=== PATIENT | male | born 1995 | race Caucasian/White ===

== ENCOUNTER 2017-11-25 03:50 | Day surgery (SDC) | payer BC, SELFPAY ==
[2017-11-25] VITALS (8 sets, daily range): BP systolic 113–151; BP diastolic 61–99; PULSE 64–76; RESP 18–19; TEMP 36.4–36.8; O2SAT 95–99; BMI 29.5
[2017-11-25] MEDS: proMETHazine 25 MG/ML Syringe 6.25 MG IV (04:17)
[2017-11-25] MEDS: HYDROmorphone 0.5 MG/0.5 ML SYRINGE IV (04:18)
[2017-11-25 04:20] LABS: Absolute Lymphocyte Count 3.35 X10^3/ul (0.83-4.51); Absolute Neutrophil Count 6.4 X10^3/uL (2.0-7.7); Basophil# 0.06 X10^3/uL; Basophil% 0.6 % (0-1); Eosinophils% 2.8 % (0-5); Hematocrit 41.1 % (40-54); Hemoglobin 14.2 g/dl (13.0-16.5); Lymphocyte # 3.35 X10^3/ul (4.0); Lymphocyte % 31.2 % (19-41); Mean Corp Hgb Conc 34.5 g/gl (32-36); Mean Corpuscular Hgb 27.8 pg (27.0-32.0); Mean Corpuscular Volume 80.6 fL (80-94); Mean Platelet Vol. 8.7 fl (6.2-12.0); Monocyte# 0.52 X10^3/uL; Monocyte% 4.8 % (0-10); Neutrophil % 59.7 % (47-70); Platelet Count 412 K/mm3 (150-450); RBC Distribution Width CV 12.7 % (11.6-14.6); RBC Distribution Width SD 36.2 fl (35.1-43.9); White Blood Count 10.7 K/mm3 (4.4-11.0)
[2017-11-25 04:23] LABS: POSITIVE COUNT NO; POSITIVE DIFFERENTIAL NO; POSITIVE MORPHOLOGY NO
[2017-11-25 04:29] LABS: International Normalized Ratio 1.1; Prothrombin Time (Protime)PT. 13.7 SECONDS (11.7-14.9)
[2017-11-25 04:31] LABS: Anion Gap 9 (5-15); BUN 11 mg/dL (7-18); BUN/Creat Ratio 11.4 RATIO (10-20); Chloride 104 mmol/L (98-107); Creatinine, Serum 0.96 mg/dL (0.70-1.30); EST Glomerular Filtration Rate 105 mL/min (>60); Est Glom Filt Rate - Afr Amer 127 mL/min (>60); Estimated Creatinine Clearance 157.36 ml/min; Glucose 106 mg/dL (74-106); Potassium 3.4 mmol/L (3.5-5.1); Sodium Level 140 mmol/L (136-145)
--- NOTE | 2017-11-25 05:00 | US_ITS ---
STUDY: SCROTUM ULTRASOUND REASON FOR EXAM: Male, 22 years old. Left scrotal pain TECHNIQUE: Ultrasound evaluation of the scrotum was performed with color Doppler and static samuels-scale imaging. COMPARISON: None. FINDINGS: RIGHT TESTICLE INTRATESTICULAR: There is a normal size of the right testicle. The right testicle measures 4.7 x 2.4 x 2.3 cm. There is a homogenous echotexture. There is normal arterial and normal venous vascularity. There is no demonstrated right testicular mass or cyst. EXTRATESTICULAR: The epididymis is normal in size. The epididymis head measures 1.5 x 0.8 x 0.7 cm. There is normal vascularity of the epididymis. There is no demonstrated epididymal cystic structure. There is a small hydrocele. There is no demonstrated varicocele. There is no demonstrated extratesticular mass or cyst. LEFT TESTICLE INTRATESTICULAR: The left testicle is smaller than the right, measuring 3.2 x 3.2 x 2.5 cm. No internal vascularity is detected, compatible with sequelae of torsion. EXTRATESTICULAR: The epididymis is large and heterogeneous, suggesting epididymitis. There is no demonstrated hydrocele. There is no demonstrated varicocele. There is no demonstrated extratesticular mass or cyst. US/Testicular with Arterial Flow IMPRESSION: No testicular vascularity is detected on the left. Findings suggest sequelae of torsion. Prominent heterogeneous left epididymis could suggest a superimposed epididymitis. Small right hydrocele. N.B. : The above information has been verbally conveyed by Tommie Tamez MD to Flor Flores , Referring Physician, on 11/25/2017 06:19:59 (ET). Electronically Signed: Tommie Tamez MD at 6:19 EDT Tel , Service support , N.B. : The above information has been verbally conveyed by Tommie Tamez MD to Flor Flores , Referring Physician, on 11/25/2017 06:19:59 (ET).
--- NOTE | 2017-11-25 05:50 | ED.DCSUM_ITS ---
- ER Visit Summary Date of Service: 11/25/17 Chief Complaint: [] Left testicle pain History of Present Illness: The patient is a 22 M [] complaining of pain in the left testicle consistent with a previous history of testicular torsion. Patient reports 2 previous testicular torsion's. Reports the last one required surgery to tack it down. Reports his surgery was in the [place] area. He denies any recent trauma to the area. Reports last ejaculation was 24 hours ago. Denies fevers. No other complaints at this time. Physical Examination: [] Afebrile, vital signs stable. 22-year-old male in mild distress. Genitourinary exam reveals normal-appearing scrotum without edema or hydrocele. Cremasteric reflex intact bilaterally. There is tenderness palpation to the left testicle. Test Results: [] Scrotal ultrasound reveals lack of blood flow to the left testicle.CBC, BMP within normal limits. INR normal. Emergency Department Course and Treatment: [] I attempted to manually detorsed the testicle which provide the patient temporary relief. However when I move my hands from the affected area the patient's pain slowly recurred consistent with recurrent torsion. After the ultrasound confirms a testicular torsion discussed the case with the on-call urologist will be in to perform surgery to correct the torsion. Treatment Plan: [] Transfer to the operating room urgently for surgical detorsion. Disposition: [] Transfer, operating room. Impression: [] Acute left testicular torsion This note was generated with [employer] dictation software. It may contain incorrect words, spelling, and punctuation that were not noted in review of the chart prior to signing ED Disposition - Plan for ED Patient: Chief Complaint: Male Pain/Injury Referrals: Care Physician,No Primary [Primary Care Provider] -
--- NOTE | 2017-11-25 06:27 | HP.PCM_ITS ---
Problem List (1) Testicular torsion Status: Acute History of Present Illness Date of Admission: 11/25/17 Chief Complaint: LEFT SEVERE TESTICULAR PAIN The patient is a 22 year old male had severe left testicular pain this morning at 3 am history of prior left torsion and bilateral orchioexy about 3 years ago in [facility]/s was done and documented no flow to the left testicle in the er Past Medical History Allergies codeine Adverse Reaction (Verified 11/25/17 03:51) Rash Home Medications: Ambulatory Orders Medication Instructions Recorded NK [NK] 11/25/17 Surgical History: - - prior bilateral orchiopexy 3 years ago Psychiatric History: No pertinent psych hx Lives: With Family Smoking Status: Never smoker Tobacco Use: Non-smoker Alcohol: None Drugs: None Review of Systems Constitutional: Denies: Chills, Fever, Weight Change HEENT: Denies: Head Aches, Sinus Congestion, Sinus Drainage Cardiovascular: Denies: Chest Pain, Palpitations Respiratory: Denies: Cough, Shortness of breath at rest, Sputum production Gastrointestinal: Reports: Abdominal Pain, - - left testicle pain Genitourinary: Denies: Dysuria Musculoskeletal: Denies: Joint Pain, Joint Tenderness Skin: Denies: Rash, Wounds Neurological: Denies: Numbness, Tingling, Focal weakness Psychiatric: Denies: Anxiety, Depression, Homicidal Ideations, Suicidal Ideations Hematologic/ Lymphatic: Denies: Easy Bruising, Easy Bleeding VTE Information - Inpt Only VTE Present on Admission: No VTE Mechan Device Prophylaxis: SCD's VTE Pharm Prophylaxis ordered?: No Reason prophylaxis not ordered:: Treatment Not Indicated Patient Problems: Active and Suspected Problems Testicular torsion (Acute) - Physical Exam General: Alert, Oriented x3, Cooperative HEENT: Atraumatic, PERRLA, EOMI, Normocephalic Neck: Supple, No JVD, Negative Carotid Bruits Lungs: Clear to auscultation, Normal air movement Cardiovascular: Regular rate, No murmurs Abdomen: Bowel Sounds Present, Soft, Non Tender Extremities: No edema, Capillary Refill Less than 3 Seconds Skin: No rashes, No breakdown Musculoskeletal: No Tenderness to Palpation of Joints or Extremities Neurological: Cranial nerves II-XII grossly intact Psych/Mental Status: Normal Affect, Appropriate Comment: left testicle swollen a little bit and severe left testicular pain on exam, Vital Signs Temp Pulse Resp BP Pulse Ox 98.0 F 66 18 151/99 H 98 11/25/17 06:17 11/25/17 06:17 11/25/17 06:17 11/25/17 06:17 11/25/17 06:17 Oxygen Delivery Method Room Air Weight: 115.9 kg Body Mass Index (BMI) 29.5 Laboratory Tests Past 24 Hrs 11/25/17 11/25/17 11/25/17 04:05 04:05 04:05 WBC 10.7 RBC 5.10 Hgb 14.2 Hct 41.1 MCV 80.6 MCH 27.8 MCHC 34.5 RDW 12.7 RDW Differential 36.2 Plt Count 412 MPV 8.7 Immature Gran % (Auto) 0.900 Neut % (Auto) 59.7 Lymph % (Auto) 31.2 [place] % (Auto) 4.8 Eos % (Auto) 2.8 Baso % (Auto) 0.6 Absolute Neuts (auto) 6.4 Absolute Lymphs (auto) 3.35 Total Counted Not Reportable PT 13.7 INR 1.1 Sodium 140 Potassium 3.4 L Chloride 104 Carbon Dioxide 27.0 Anion Gap 9 BUN 11 Creatinine 0.96 Estim Creat Clear Calc 157.36 Est GFR (MDRD) Af Amer 127 Est GFR (MDRD) Non-Af 105 BUN/Creatinine Ratio 11.4 Glucose 106 Calcium 9.0 Assessment/Plan Active and Suspected Problems Testicular torsion (Acute) plan to take to OR today for surgical exploration. possible orchiopexy, plan for b/l orchiopexy , possible orchiectomy.
[2017-11-25] MEDS: Bupivacaine Mpf 0.5% 30 ML VIAL (06:33)
--- NOTE | 2017-11-25 07:42 | PCM.OPRPT ---
Problem List (1) Testicular torsion Status: Acute Report of Operation Date of Procedure: 11/25/17 Pre-Operative Diagnosis: Left testicular torsion Post-Operative Diagnosis: Same Surgery/Procedure Performed:: Scrotal exploration, detorsion of the left testicle, bilateral orchiopexy Description of Surgical Findings:: 22-year-old male was taken back to the operating room emergently for acute onset of left testicular torsion, after induction of anesthesia and intubation, the scrotum and testicle area were prepped and draped in usual sterile fashion, I then made an incision in the midline scrotal raphae and infiltrated the scrotum with Marcaine. Dissected down immediately to the left testicle carrying the incision through the dartos muscle and the tunica albuginea, immediately encountered a testicle is completely blue and the epididymis was also blue and the testicle was twisted 360?, testicles untwisted and immediately blood flow returned to the testicle it was blue and we put the testicle in warm water and started to pink up nicely, I then opened up the right testicular sac and tunica and then performed an orchiopexy on the right side with 3 point fixation using permanent braided suture the fixation was done on the left and right aspect of the testicle and the top of the testicle, also in the right testicle I removed the appendix of the testicle on the epididymis. I went to the left testicle and by this time it was less blue and appeared viable and the epididymis is nice and pink, and I removed the appendix of the epididymis off the left testicle, I then created a dartos pouch and then made a 3 point fixation of the left testicle using permanent braided suture, of note the right testicle was completely free in its sac with no signs of any suture, same thing with the left side the testicle was twisted but no suture was noted within the sac. After completing bilateral orchiopexy I then closed the dartos layer with chromic and then closed the skin with subcuticular Monocryl suture. Fluffs and scrotal support was placed patient anesthetic was reversed and he will see me in about 2 weeks for checkup. Type of Anesthesia:: General Drains: none - Admit VTE Documentation VTE Present on Admission: No VTE Mechan Device Prophylaxis: SCD's VTE Pharm Prophylaxis ordered?: No Reason prophylaxis not ordered:: Treatment Not Indicated
--- NOTE | 2017-11-25 07:50 | PCM.DC.URO ---
Discharge Diet: Light diet - advance as tolerated Discharge Activity: May not drive while taking narcotic pain medications., May Shower May shower in (days): 1 May resume sexual activity in: 6 weeks Call your doctor if your incision/area has: Continuous Slow Oozing, Sudden Increased Bleeding, Increased Pain/ Swelling, Increased Redness, Foul Smelling Discharge, Swelling at the incision site Call your doctor if you observe: Fever of 101 or Higher, Uncontrolled pain Suture Line Care: Avoid Pulling/Pushing, Avoid Pinching/Bending Instructions: Surgery for an Undescended Testicle Additional Instructions: bedrest for 3 days Allergies/Adverse Reactions: Allergies codeine Adverse Reaction (Verified 11/25/17 03:51) Rash Medications to take at Discharge Hydrocodone/Acetaminophen [[place] 5-325 Tablet] 1 ea PO Q4H PRN PRN 5 Days #14 tab 11/25/17 The following prescriptions were given: Hydrocodone/Acetaminophen [[place] 5-325 Tablet] 1 ea PO Q4H PRN PRN 5 Days #14 tab PRN Reason: Pain Primary Care Physician: Care Physician,No Primary [Primary Care Provider] - Please Follow Up With: Be Miguel MD When: in 2 weeks, please call to make an appointment.
== END 2017-11-25 09:01 | disposition home or self-care (01) ==
LOC: ED 05:49 → SDC 05:52
PROVIDERS: Emergency Provider Emergency Medicine; Visit Provider Urology
PROC: (CPT 54600; principal; 2017-11-25 06:30)
DX: N44.00 Torsion of testis, unspecified (principal); E66.9 Obesity, unspecified
CPT/HCPCS: 00930; 54600; 54640; 76870; 80048; 85025; 85610; 93976; 99285; J7030; J7040; A4216; J2405